=== PATIENT | male | born 1975 | race Caucasian/White ===

== ENCOUNTER 2017-05-19 08:40 | Outpatient (CLI) | payer BC, OTHER ==
--- NOTE | 2017-05-19 10:14 | ULT ---
ABDOMINAL ULTRASOUND: Date: 05-19-17 Comparison: CT of abdomen/pelvis, 07-28-16. History: Renal cyst. History of testicular cancer. Technique: Multiplanar grayscale sonographic imaging of the abdomen obtained. FINDINGS: Imaged pancreas appears unremarkable. The distal body and tail are partially obscured by bowel gas. T he imaged IVC and aorta is within normal limits. No focal liver lesion or intrahepatic biliary dilatation is noted. The common bile duct measures 2 mm , within normal limits. No gallbladder wall thickening or pericholecystic fluid. No gallstones are seen. The right kidney measures 10.4 x 4.4 cm. There is a exophytic lesion emanating from the upper pole of the right kidney laterally measuring approximately 7.2 x 6.3 cm. This lesion is primarily cystic in nature. It demonstrates a linear echogenic septation near the renal cortex which measures up to 2-3 m m in thickness. The thickness of this internal echogenic septation appears similar when compared to a CT examination performed 07-28-16. The left kidney measures 10.2 x 5.0 cm and demonstrates no stone, hydronephrosis or mass. Spleen liban ures up to 7.5 cm, within normal limits. IMPRESSION: Complex large exophytic cystic lesion emanates from the right kidney as described above. In greatest dimension, this lesion measures up to 7.2 cm. This does not appear significantly changed when compare d to prior CT examinations although differences in technique/modality slightly limits comparison. Fol low up imaging suggested. POS: [facility]
== END 2017-05-19 08:41 | disposition home or self-care (01) ==
LOC: ULT 08:40
PROVIDERS: ATTEND Urology
DX: C62.91 Malignant neoplasm of right testis, unspecified whether descended or undescended (principal); N28.1 Cyst of kidney, acquired; N28.89 Other specified disorders of kidney and ureter
CPT/HCPCS: 76700

== ENCOUNTER 2018-03-31 08:53 | Outpatient (CLI) | payer BC ==
--- NOTE | 2018-03-31 11:16 | CT ---
CT ABDOMEN AND PELVIS WITH AND WITHOUT IV CONTRAST: DATE: 03/31/2018. PROVIDED CLINICAL HISTORY: Right renal cyst . FINDINGS: Comparison is made with the study dated 07/28/2016. The visualized lung bases are free of significant opacity. There is a stable cyst involving the lateral aspect of the right kidney with associated single thin i nternal septation that demonstrates some minimal associated calcium. The solid abdominal organs demonstrate an otherwise unremarkable CT appearance. There is no bowel dilatation, inflammatory fat stranding, free fluid, or lymph node enlargement appar ent. The delayed images demonstrate no evidence for filling defect involving the renal collecting systems, segmentally opacified ureters, or urinary bladder. Urinary bladder wall appears somewhat thickened, which may be on the basis of incomplete distension. There is no surrounding inflammatory change. The osseous structures demonstrate no concerning osteoblastic or osteolytic lesions. IMPRESSION: Stable exam. POS: [facility]
--- NOTE | 2018-03-31 11:19 | ULT ---
SCROTAL SONOGRAM WITH DUPLEX EVALUATION: HISTORY: Seminoma with prior right orchiectomy. Followup. COMPARISON: 05/13/2016 FINDINGS: The right testicle is surgically absent. The left testicle is 3.7 cm in length, with good color and spectral Doppler flow. A few scattered microcalcifications are again demonstrated. No free fluid in the left side of the scrotum. Tiny epididymal head cysts. IMPRESSION: 1. Status post right orchiectomy. 2. Mild microlithiasis, left testicle, stable. POS: [facility]
[2018-03-31] MEDS ORDERED: Iopamidol 370 76% 100 ML VIAL ONE (12:32)
== END 2018-03-31 08:54 | disposition home or self-care (01) ==
LOC: CT 08:53
PROVIDERS: ATTEND Urology
DX: C62.91 Malignant neoplasm of right testis, unspecified whether descended or undescended (principal); N28.1 Cyst of kidney, acquired; R93.49 Abnormal radiologic findings on diagnostic imaging of other urinary organs; Z90.79 Acquired absence of other genital organ(s)
CPT/HCPCS: 74178; 76870; 93976; Q9967

== ENCOUNTER 2018-04-06 15:43 | Outpatient (CLI) | payer BC ==
[2018-04-06 16:48] LABS: Bilirubin Negative (Negative); Blood, Urine Negative (Negative); Clarity CLEAR (Clear); Glucose, Urine (Dipstick) Negative (Negative); Leukocyte Negative (Negative); Nitrite Negative (Negative); Protein, Urine (Dipstick) Trace mg/dL (Neg-Trace)
[2018-04-06 16:54] LABS: ALT (SGPT) 31 U/L (8-55); AST (SGOT) 33 U/L (5-34); Albumin 4.7 g/dL (3.5-5.0); Alkaline Phosphatase 61 U/L (40-150); Anion Gap 12 mmol/L (10-20); BUN (Urea Nitrogen) 16 mg/dL (8.9-20.6); Bilirubin, Total 1.1 mg/dL (0.2-1.2); Calc. Creatinine Clearance 0 mL/min (70-130); Calcium 10.4 mg/dL (7.8-10.44); Carbon Dioxide 32 mmol/L (22-29); Chloride 101 mmol/L (98-107); Estimated GFR-MDRD 83; Globulin 2.9 g/dL (2.4-3.5); Glucose 90 mg/dL (70-105); LDH 181 U/L (125-220); Potassium 4.8 mmol/L (3.5-5.1); Protein, Total 7.6 g/dL (6.0-8.3); Sodium 140 mmol/L (136-145)
--- NOTE | 2018-04-06 17:26 | RAD ---
2 VIEWS CHEST: Date: 04/06/18 COMPARISON: 10/28/16. HISTORY: Seminoma right testis. FINDINGS: Two views of the chest show normal sized cardiomediastinal silhouette. There is no evidence of consol idation, mass, or pleural effusion. The bones are unremarkable. IMPRESSION: No evidence of acute cardiopulmonary disease. POS: [facility]
== END 2018-04-06 15:44 | disposition home or self-care (01) ==
LOC: RAD 15:43
PROVIDERS: ATTEND Urology
DX: C62.91 Malignant neoplasm of right testis, unspecified whether descended or undescended (principal); N28.1 Cyst of kidney, acquired; R35.0 Frequency of micturition
CPT/HCPCS: 36415; 71046; 80053; 81003; 82105; 83615; 84702; 87086

== ENCOUNTER 2019-05-04 13:32 | Outpatient (CLI) | payer BC ==
--- NOTE | 2019-05-04 14:56 | ULT ---
Exam: Bilateral renal ultrasound HISTORY: Renal cyst. COMPARISON: None Correlation: Abdomen and pelvic CT 03/31/2018 FINDINGS: Right kidney: Normal cortical echotexture. No hydronephrosis. There is a large anechoic focus with se ptations in the upper pole right kidney measuring 10.5 x 6.2 x 5.8 cm. Correlation made with previous CT does demonstrate a large cyst with a thin septation. Additional cystic or solid lesions a re not appreciated in the right kidney. Right kidney measurements: 7.4 x 3.9 x 5.2 cm. Left kidney: Normal cortical echotexture. No hydronephrosis Left kidney measurements 5.6 x 5.3 x 10.3 cm. Urinary bladder: Normal mucosa. However, the bladder wall appears be thickened. Bilateral ureteral je ts are identified. Prevoid volume is 313 mL. Post void volume is 10 mL. Enlarged prostate gland measuring 2.9 x 4.5 x 3.3 cm IMPRESSION: 1. Bladder wall thickening which may be due to benign prostate hyperplasia with resultant urinary out let obstruction. Correlate clinically. 2. Septated exophytic cyst in the upper pole the right kidney. 3. Bilaterally no hydronephrosis.
--- NOTE | 2019-05-04 15:05 | ULT ---
SCROTAL ULTRASOUND WITH COLOR AND SPECTRAL DOPPLER IMAGING: History Seminoma right testes with prior orchiectomy. COMPARISON: 03/31/2018. FINDINGS: The right testis has been removed. The left testis measures 3.9 x 2.2 x 1.5 cm. There is some fluid within the right-sided scrotal sac. Left epididymis is within normal limits of size containing a 0. 1 x 0.3 tiny epididymal cyst. There are a few scattered microlithiasis within the left testis. No i ntratesticular mass. No evidence for testicular torsion. IMPRESSION: 1. Status post right orchiectomy. Scattered microlithiasis within the left testis without evidence for a solid intratesticular mass or testicular torsion. 2. Some free fluid within the right-sided scrotum. POS: [facility]
== END 2019-05-04 13:33 | disposition home or self-care (01) ==
LOC: ULT 13:32
PROVIDERS: ATTEND Urology
DX: C62.91 Malignant neoplasm of right testis, unspecified whether descended or undescended (principal); N28.1 Cyst of kidney, acquired; N50.89 Other specified disorders of the male genital organs; Z90.79 Acquired absence of other genital organ(s)
CPT/HCPCS: 36415; 76770; 76870; 80053; 82105; 83615; 84702; 93976

== ENCOUNTER 2019-12-21 13:41 | Outpatient (CLI) | payer BC ==
--- NOTE | 2019-12-21 14:56 | CT ---
CT ABDOMEN AND PELVIS WITH AND WITHOUT IV CONTRAST 12/21/2019 CLINICAL INFORMATION: Complex renal cyst, bladder wall thickening. Follow-up evaluation. Patient has history of right testi cular cancer with prior right orchiectomy and chemotherapy. COMPARISON: 03/31/2018, 07/28/2016, and 03/11/2015 Technique: Multiple contiguous axial CT images are obtained through the abdomen and pelvis with IV contrast. Cor onal reformatted images are provided. FINDINGS: Lower Chest: Lung bases are clear. No pulmonary nodule or mass is seen at either lung base. Vessels: Abdominal aorta is normal in caliber. Abdomen: Portal vein:Patent Gallbladder: Decompressed. Liver: within normal limits. Spleen: within normal limits. Pancreas: within normal limits. Adrenals: within normal limits. Kidneys: Left kidney remains normal appearance. The large exophytic right renal cyst is again seen me asuring 6.7 cm in greatest dimensions unchanged in size compared to study in 2019. This is larger in size compared to study in 2016, but fluid attenuation is obtained. Single thin calcified septation is seen within this cyst which is also a stable finding dating back to 2016. No enhancing renal mass is identified. No renal or ureteral calculi are seen bilaterally, and there is no hydronephrosis . Each of the ureters demonstrates tortuosity on delayed imaging. Questionable tiny filling defect is seen in the proximal left ureter, but this is felt to be related to peristalsis as opposed to actu al filling defect. Remainder of the opacified renal collecting systems and segmentally opacified ureters demonstrate a normal appearance. Bowel: Small amount of retained fecal material seen throughout the colon. Loops of small bowel are no rmal in caliber. Appendix: The appendix is visualized and normal in caliber. Peritoneum: No ascites or free air; no fluid collection. Mesentery and Retroperitoneum: No enlarged mesenteric or retroperitoneal lymph nodes. Abdominal Wall: within normal limits. Pelvis: Reproductive Organs: No pelvic masses. Bladder: There is improvement in urinary bladder wall thickening compared to prior CT exam in 2019, b ut this is likely due to greater degree of distention of the urinary bladder on current study. Bones: No suspicious lytic or sclerotic osseous lesions. IMPRESSION: 1. Stable Bosniak type II right renal cyst. 2. Improvement in bladder wall thickening likely related to better degree of distention of the urinar y bladder. 3. No renal or ureteral calculi are seen, and there is no hydronephrosis or renal mass. 3. No CT findings to suggest metastatic disease.
[2019-12-21] MEDS ORDERED: Iopamidol-370 76% 500 ML 1 ML ONE (15:09)
== END 2019-12-21 13:42 | disposition home or self-care (01) ==
LOC: BICCT 13:41
PROVIDERS: ATTEND Urology
DX: N28.1 Cyst of kidney, acquired (principal); N32.89 Other specified disorders of bladder
CPT/HCPCS: 74178; Q9967

== ENCOUNTER 2020-04-28 10:46 | Outpatient (CLI) | payer BC | END 2020-04-28 10:47 | disposition home or self-care (01) | LOC: BICRAD 10:46 | PROVIDERS: ATTEND Urology | DX: C62.91 Malignant neoplasm of right testis, unspecified whether descended or undescended (principal) | CPT/HCPCS: 71046 ==

== ENCOUNTER 2021-05-22 10:19 | Outpatient (CLI) | payer BC | END 2021-05-22 10:20 | disposition home or self-care (01) | LOC: BICRAD 10:19 | PROVIDERS: ATTEND Urology | DX: C62.91 Malignant neoplasm of right testis, unspecified whether descended or undescended (principal) | CPT/HCPCS: 71046 ==